=== PATIENT | female | born 1940 | race Caucasian/White ===

== ENCOUNTER → 2020-08-01 | Outpatient (REF) | payer OTHER ==
[2020-08-01 17:53] LABS: BASO # 0.1 10^3/uL (0.0-0.2); BASO % 0.9 % (0.0-1.0); EOS # 0.3 10^3/uL (0.0-0.5); EOS % 3.7 % (0.0-3.0); HEMOGLOBIN 9.8 g/dl (12.0-15.5); LYMPH # 2.6 10^3/uL (1.5-5.0); LYMPH % 36.7 % (24.0-44.0); MEAN CORPUSCULAR HEMOGLOBIN 25.6 pg (27.0-33.0); MEAN CORPUSCULAR HGB CONC 29.7 g/dl (32.0-36.5); MEAN CORPUSCULAR VOLUME 86.2 fl (80.0-96.0); MONO # 0.5 10^3/uL (0.0-0.8); MONO % 7.8 % (2.0-8.0); NEUTROPHILS # 3.5 10^3/uL (1.5-8.5); NEUTROPHILS % 50.8 % (36.0-66.0); PLATELET COUNT, AUTOMATED 294 10^3/uL (150-450); RED BLOOD COUNT 3.83 10^6/uL (4.00-5.40); WHITE BLOOD COUNT 6.9 10^3/uL (4.0-10.0)
[2020-08-01 18:18] LABS: HEMOGLOBIN A1c 5.7 %
[2020-08-01 18:20] LABS: ALBUMIN 3.7 GM/DL (3.2-5.2); BILIRUBIN,TOTAL 0.8 MG/DL (0.2-1.0); CALCIUM LEVEL 9.7 MG/DL (8.8-10.2); CHOLESTEROL RISK RATIO 2.304 (<5); CREATININE FOR GFR 0.98 MG/DL (0.55-1.30); FREE T4 0.92 NG/DL (0.76-1.46); GLOMERULAR FILTRATION RATE 57.8 (>32); POTASSIUM SERUM 4.4 MEQ/L (3.5-5.1); THYROID STIMULATING HORMONE 5.4 uIU/ML (0.358-3.740)
[2020-08-01 18:21] LABS: TOTAL 25(OH) VITAMIN D 26.8 NG/ML (30.0-100.0)
[2020-08-01 18:22] LABS: FOLATE 20.7 NG/ML (>5.4)
== END ==
LOC: M SFHCPLAZ 14:39
PROVIDERS: ATTEND Nurse Practitioner Family
DX: E78.5 Hyperlipidemia, unspecified (principal); G30.9 Alzheimer's disease, unspecified; E03.9 Hypothyroidism, unspecified; E55.9 Vitamin D deficiency, unspecified; Z79.899 Other long term (current) drug therapy
CPT/HCPCS: 36415; 80053; 80061; 82306; 82607; 82746; 83036; 84439; 84443; 85025; G0463

== ENCOUNTER → 2020-08-06 | Outpatient (CLI) | payer OTHER ==
--- NOTE | 2020-08-07 14:19 | REPMRS ---
Patient History Patient is postmenopausal, has history of other cancer at age 55, and had previous chemotherapy at age 55. No known family history of cancer. Benign left breast biopsy in 1992 [facility] Screen Mammo: August 06, 2020 - Exam #: [id number] Bilateral CC and MLO view(s) were taken. Technologist: Yaquelin Osullivan, RT No prior studies available for comparison. FINDINGS: The breast tissue is heterogeneously dense. This may lower the sensitivity of mammography. The Volpara volumetric breast density category is: C. There are 2 needle biopsy marker clips in the left breast. There is no evidence of dominant mass, architectural distortion, or grouped microcalcification typical of malignancy. 3-D tomosynthesis shows no additional findings. Assessment: BI-RADS/ACR category 2 mammogram. Benign Findings. Recommendation Routine screening mammogram of both breasts in 1 year (for women over age 40). This patient's [facility] Lifetime Breast Cancer RIsk is estimated at 1.2 %. This mammogram was interpreted with the aid of an FDA-approved computer-aided dectection system. Electronically Signed By: Alex Espana MD 08/07/20 [id number]
== END ==
LOC: EDUNIT# 15:00 → M WHC 15:00
PROVIDERS: ATTEND Nurse Practitioner Family
DX: Z12.31 Encounter for screening mammogram for malignant neoplasm of breast (principal); Z85.89 Personal history of malignant neoplasm of other organs and systems; Z92.21 Personal history of antineoplastic chemotherapy; Z78.0 Asymptomatic menopausal state

== ENCOUNTER → 2020-09-08 | Outpatient (CLI) | payer OTHER | LOC: M LABSMTC 12:40 | PROVIDERS: ATTEND Family Medicine | DX: Z11.52 Encounter for screening for COVID-19 (principal) | CPT/HCPCS: C9803; U0003 ==

== ENCOUNTER → 2020-09-20 | Outpatient (CLI) | payer OTHER ==
[~2020-09-20] MED LIST: AMLO1TAB24 PO; ARIC1TAB PO; ARIP1TAB6 PO; ATOR40TA75 PO; MIRA3350 PO; SYNT25TA PO
== END ==
LOC: M LABSMTC 11:01
PROVIDERS: ATTEND Anesthesiology
DX: Z01.818 Encounter for other preprocedural examination (principal); Z20.822 Contact with and (suspected) exposure to COVID-19

== ENCOUNTER 2020-09-25 11:26 | Day surgery (SDC) | payer OTHER ==
[~2020-09-25] VITALS: Ht 160 cm; Wt 79.8 kg
[~2020-09-25 11:26] MED LIST changes: +NS 1,000 ML IV ONE
[2020-09-25] MEDS ORDERED: propofoL 200 MG/20 ML VIAL As Ordered ONE (13:32)
[2020-09-25] MEDS ORDERED: LIDOCAINE 2% 100MG/5ML SDV (FOR ANES.) As Ordered ONE (13:32)
[2020-09-25] MEDS ORDERED: GLYCOPYRROLATE INJ 0.2 MG/ML 2 ML VIAL As Ordered ONE (14:22)
--- NOTE | 2020-09-25 14:41 | ROOR ---
Patient Name: Ernestine Bolanos Procedure Date: 09/25/2020 2:28 PM Date of : 1940 Age: 80 Room: [facility] Gender: Female Note Status: Finalized Procedure: Upper GI endoscopy Indications: Heme positive stool Providers: German FOX MD Referring MD: Radha Perkins Requesting Provider: Medicines: Monitored Anesthesia Care Complications: No immediate complications. Procedure: Pre-Anesthesia Assessment: - The heart rate, respiratory rate, oxygen saturations, blood pressure, adequacy of pulmonary ventilation, and response to care were monitored throughout the procedure. The Endoscope was introduced through the mouth, and advanced to the second part of duodenum. The upper GI endoscopy was accomplished without difficulty. The patient tolerated the procedure well. Findings: The esophagus was normal. The stomach was normal. The examined duodenum was normal. Impression: - Normal esophagus. - Small hiatal hernia - Otherwise normal stomach. - Normal examined duodenum. - No specimens collected. Recommendation: - Observe patient's clinical course. Procedure Code(s): --- Professional --- 84512, Esophagogastroduodenoscopy, flexible, transoral; diagnostic, including collection of specimen(s) by brushing or washing, when performed (separate procedure) Diagnosis Code(s): --- Professional --- R19.5, Other fecal abnormalities CPT copyright 2019 [employer]. All rights reserved. The codes documented in this report are preliminary and upon fill plant operator review may be revised to meet current compliance requirements. German Fox MD German FOX MD 09/25/2020 2:40:44 PM Electronically signed by German FOX MD Number of Addenda: 0 Note Initiated On: 09/25/2020 2:28 PM Estimated Blood Loss: Estimated blood loss: none.
--- NOTE | 2020-09-25 14:57 | ROOR ---
Patient Name: Ernestine Bolanos Procedure Date: 09/25/2020 2:29 PM Date of : 1940 Age: 80 Room: [facility] Gender: Female Note Status: Finalized Procedure: Colonoscopy Indications: Hematochezia, Heme positive stool Providers: German FOX MD Referring MD: Radha Perkins Requesting Provider: Medicines: Monitored Anesthesia Care Complications: No immediate complications. Procedure: Pre-Anesthesia Assessment: - The heart rate, respiratory rate, oxygen saturations, blood pressure, adequacy of pulmonary ventilation, and response to care were monitored throughout the procedure. The Colonoscope was introduced through the anus and advanced to the terminal ileum, with identification of the appendiceal orifice and IC valve. The colonoscopy was performed without difficulty. The patient tolerated the procedure well. The quality of the bowel preparation was good. Findings: The digital rectal exam findings include decreased sphincter tone. Internal hemorrhoids were found during retroflexion. The hemorrhoids were medium-sized. A few small-mouthed diverticula were found in the sigmoid colon and descending colon. The exam was otherwise without abnormality on direct and retroflexion views. Impression: - Decreased sphincter tone found on digital rectal exam. - Moderate Internal hemorrhoids. - Mild diverticulosis in the sigmoid colon and in the descending colon. - The colonoscopy is otherwise normal on direct and retroflexion views. - No specimens collected. Recommendation: - Return to referring physician as previously scheduled. Procedure Code(s): --- Professional --- 10690, Colonoscopy, flexible; diagnostic, including collection of specimen(s) by brushing or washing, when performed (separate procedure) Diagnosis Code(s): --- Professional --- K62.89, Other specified diseases of anus and rectum K64.8, Other hemorrhoids K92.1, Melena (includes Hematochezia) R19.5, Other fecal abnormalities K57.30, Diverticulosis of large intestine without perforation or abscess without bleeding CPT copyright 2019 [employer]. All rights reserved. The codes documented in this report are preliminary and upon sales representative consultant review may be revised to meet current compliance requirements. German Fox MD German FOX MD 09/25/2020 2:56:40 PM Electronically signed by German FOX MD Number of Addenda: 0 Note Initiated On: 09/25/2020 2:29 PM Estimated Blood Loss: Estimated blood loss: none.
[2020-09-25 15:20] VITALS: BP 170/74
== END 2020-09-25 15:28 | disposition home or self-care (01) ==
LOC: M OPP 11:26
PROVIDERS: ATTEND Internal Medicine Gastroenterology
DX: K62.89 Other specified diseases of anus and rectum (principal); K64.8 Other hemorrhoids; K57.30 Diverticulosis of large intestine without perforation or abscess without bleeding; K92.1 Melena; D64.9 Anemia, unspecified; E11.9 Type 2 diabetes mellitus without complications; I10 Essential (primary) hypertension; E03.9 Hypothyroidism, unspecified; G30.9 Alzheimer's disease, unspecified; Z85.850 Personal history of malignant neoplasm of thyroid; Z92.21 Personal history of antineoplastic chemotherapy; Z79.899 Other long term (current) drug therapy; Z88.1 Allergy status to other antibiotic agents

== ENCOUNTER 2020-10-26 12:43 | Emergency (ER) | payer OTHER ==
[~2020-10-26] VITALS: Ht 157.5 cm; Wt 81.8 kg
[~2020-10-26 12:43] MED LIST changes: -NS 1,000 ML IV ONE
--- NOTE | 2020-10-26 13:48 | REP ---
INDICATION: trauma COMPARISON: None. TECHNIQUE: AP, lateral, bilateral oblique views. FINDINGS: Osteopenia and advanced tricompartmental osteoarthritic degenerative changes. No obvious acute fracture or dislocation. IMPRESSION: Osteopenia and advanced tricompartmental degenerative changes. No acute fracture dislocation. <Electronically signed by Robe Hinojosa > 10/26/20 [id number]
--- NOTE | 2020-10-26 14:48 | REP ---
INDICATION: pain back of knee COMPARISON: None. TECHNIQUE: Valle scale and color Doppler evaluation using linear high frequency transducer. FINDINGS: Ultrasound examination of the left lower extremity deep venous structures from the common femoral vein through the calf/ankle to include the peroneal, and tibial veins demonstrates normal compressibility flow and wave patterns in response to respiration and augmentation. There is no evidence for deep venous thrombosis. Contralateral CFV is patent and normal. IMPRESSION: No evidence for deep venous thrombosis. <Electronically signed by Robe Hinojosa > 10/26/20 [id number]
[2020-10-26 15:19] VITALS: BP 154/78
== END 2020-10-26 15:20 | disposition home or self-care (01) ==
LOC: M ED 12:43
DX: M85.862 Other specified disorders of bone density and structure, left lower leg (principal); M25.562 Pain in left knee; K21.9 Gastro-esophageal reflux disease without esophagitis; K64.8 Other hemorrhoids; K59.00 Constipation, unspecified; E03.9 Hypothyroidism, unspecified; I10 Essential (primary) hypertension; Z88.8 Allergy status to other drugs, medicaments and biological substances

== ENCOUNTER → 2020-12-02 | Outpatient (CLI) | payer OTHER ==
[2020-12-02 13:27] LABS: BASO # 0.1 10^3/uL (0.0-0.2); BASO % 0.8 % (0.0-1.0); EOS # 0.3 10^3/uL (0.0-0.5); EOS % 5.1 % (0.0-3.0); HEMATOCRIT 34.4 % (36.0-47.0); HEMOGLOBIN 10.6 g/dl (12.0-15.5); LYMPH # 2.3 10^3/uL (1.5-5.0); LYMPH % 34.5 % (24.0-44.0); MEAN CORPUSCULAR HEMOGLOBIN 28.7 pg (27.0-33.0); MEAN CORPUSCULAR HGB CONC 30.8 g/dl (32.0-36.5); MEAN CORPUSCULAR VOLUME 93.2 fl (80.0-96.0); MONO # 0.5 10^3/uL (0.0-0.8); NEUTROPHILS # 3.4 10^3/uL (1.5-8.5); NEUTROPHILS % 51.3 % (36.0-66.0); PLATELET COUNT, AUTOMATED 266 10^3/uL (150-450); RED BLOOD COUNT 3.69 10^6/uL (4.00-5.40); WHITE BLOOD COUNT 6.5 10^3/uL (4.0-10.0)
[2020-12-02 13:59] LABS: FREE T4 0.89 NG/DL (0.76-1.46); THYROID STIMULATING HORMONE 5.41 uIU/ML (0.358-3.740)
== END ==
LOC: M PLALAB 11:49
PROVIDERS: ATTEND Nurse Practitioner Family
DX: D64.9 Anemia, unspecified (principal); E03.9 Hypothyroidism, unspecified
CPT/HCPCS: 36415; 82728; 84439; 84443; 85025; G0463